=== PATIENT | female | born 2000 ===

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

== ENCOUNTER 2019-01-27 10:27 | Emergency (ER) | payer SELFPAY ==
[2019-01-27 11:03] VITALS: BP 109/71
--- NOTE | 2019-01-27 11:08 | UC ---
Complaint Female HPI - HPI Summary HPI Summary: 18 -year-old female who had hematuria this morning with burning on urination and frequency. She denies any fever, thinks she's had chills, she has regular periods, she has an IUD in place she is sexually active. - History Of Current Complaint Chief Complaint: UCGU Stated Complaint: URINARY Time Seen by Provider: 01/27/19 10:54 Hx Obtained From: Patient Hx Last Menstrual Period: 01/20/19 ?: No Onset/Duration: Sudden Onset Timing: Intermittent Severity Initially: Mild Severity Currently: Mild Pain Intensity: 8 Character: Burning Aggravating Factor(s): Urination Alleviating Factor(s): Nothing Associated Signs And Symptoms: Positive: Negative - Allergies/Home Medications Allergies/Adverse Reactions: Allergies Allergy/AdvReac Type Severity Reaction Status Date / Time No Known Allergies Allergy Verified 01/27/19 10:57 PMH/Surg Hx/FS Hx/Imm Hx Previously Healthy: Yes - Surgical History Surgical History: None - Family History Known Family History: Positive: Cardiac Disease - Social History Alcohol Use: Rare Substance Use Type: None Smoking Status (MU): Never Smoked Tobacco Have You Smoked in the Last Year: No - Immunization History Vaccination Up to Date: Yes Review of Systems All Other Systems Reviewed And Are Negative: Yes Genitourinary: Positive: Dysuria, Hematuria, Frequency, Urgency. Negative: Vaginal/Penile Burning, Vaginal/Penile Itching, Vaginal/Penile Discharge, Vaginal/Penile Pain, Vaginal/Penile Tenderness Is Patient Immunocompromised?: No Physical Exam Triage Information Reviewed: Yes Appearance: Well-Appearing, No Pain Distress, Well-Nourished Vital Signs: Initial Vital Signs Temp 97.6 F 01/27/19 10:58 Pulse 105 01/27/19 10:58 Resp 18 01/27/19 10:58 BP 109/71 01/27/19 10:58 Pulse Ox 100 01/27/19 10:58 Vital Signs Reviewed: Yes Neck exam: Normal Neck: Positive: Supple, Nontender, No Lymphadenopathy Respiratory: Positive: Lungs clear, Normal breath sounds, No respiratory distress, No accessory muscle use Cardiovascular: Positive: RRR, No Murmur, Pulses Normal, Brisk Capillary Refill Abdomen Description: Positive: Nontender, No Organomegaly, Soft Bowel Sounds: Positive: Present Complaint Female Dx - Course Course Of Treatment: Urinalysis was positive for urinary tract infection with hematuria. Going to treat her with Bactrim DS one tab by mouth twice a day 5 days as well as Pyridium 3 times a day for 2 days. She is to go to the emergency room if she develops fever, chills, back pain or vomiting and unable keep medication down. She may recheck at the [facility] over the next few days if no improvement. Patient is agreeable with this plan of action. - Differential Dx/Diagnosis Provider Diagnosis: UTI (urinary tract infection) Discharge - Sign-Out/Discharge Documenting (check all that apply): Patient Departure All imaging exams completed and their final reports reviewed: No Studies - Discharge Plan Condition: Fair Disposition: HOME Prescriptions: Phenazopyridine TAB* [Pyridium 100 mg TAB*] 100 mg PO TID 2 Days #6 tab Sulfamethox/Trimethoprim DS* [Bactrim DS 800/160 TAB*] 1 tab PO BID 5 Days #10 tab Patient Education Materials: Urinary Tract Infection in Women (DC) Forms: *School Release Referrals: [facility] [Outside] No Primary Care Phys,NOPCP [Primary Care Provider] - Additional Instructions: Increase fluids, take the Bactrim with food, go to the emergency room if you develop any fever, chills, vomiting and unable keep the medication down. - Billing Disposition and Condition Condition: FAIR Disposition: Home
--- NOTE | 2019-01-29 07:11 | UC ---
- Progress Note Progress Note: + UTI E. Coli on Bactrim await sensitivity julieta 01/29/19 Course/Dx - Diagnoses Provider Diagnoses: UTI (urinary tract infection) Discharge - Sign-Out/Discharge Documenting (check all that apply): Post-Discharge Follow Up All imaging exams completed and their final reports reviewed: No Studies - Discharge Plan Condition: Fair Disposition: HOME Prescriptions: Phenazopyridine TAB* [Pyridium 100 mg TAB*] 100 mg PO TID 2 Days #6 tab Sulfamethox/Trimethoprim DS* [Bactrim DS 800/160 TAB*] 1 tab PO BID 5 Days #10 tab Patient Education Materials: Urinary Tract Infection in Women (DC) Forms: *School Release Referrals: [facility] [Outside] No Primary Care Phys,NOPCP [Primary Care Provider] - Additional Instructions: Increase fluids, take the Bactrim with food, go to the emergency room if you develop any fever, chills, vomiting and unable keep the medication down. - Billing Disposition and Condition Condition: FAIR Disposition: Home
--- NOTE | 2019-01-30 07:10 | UC ---
- Progress Note Progress Note: urine culture + for Ecoli resistance to Bactrim please have the pt. stop Bactrim will call in Cipro 250 mg bid x 5 days Course/Dx - Diagnoses Provider Diagnoses: UTI (urinary tract infection) Discharge - Sign-Out/Discharge Documenting (check all that apply): Patient Departure All imaging exams completed and their final reports reviewed: No Studies - Discharge Plan Condition: Fair Disposition: HOME Prescriptions: Ciprofloxacin TAB* [Cipro 250 MG Tab*] 250 mg PO BID #10 tab Phenazopyridine TAB* [Pyridium 100 mg TAB*] 100 mg PO TID 2 Days #6 tab Sulfamethox/Trimethoprim DS* [Bactrim DS 800/160 TAB*] 1 tab PO BID 5 Days #10 tab Patient Education Materials: Urinary Tract Infection in Women (DC) Forms: *School Release Referrals: [facility] [Outside] No Primary Care Phys,NOPCP [Primary Care Provider] - Additional Instructions: Increase fluids, take the Bactrim with food, go to the emergency room if you develop any fever, chills, vomiting and unable keep the medication down. - Billing Disposition and Condition Condition: FAIR Disposition: Home
== END 2019-01-27 11:21 | disposition home or self-care (01) ==
LOC: UCCORT 10:27
DX: N39.0 Urinary tract infection, site not specified (principal); Z97.5 Presence of (intrauterine) contraceptive device
CPT/HCPCS: 81003; 84702; 87077; 87086; 87186; 99212; G0463